=== PATIENT | male | born 1990 | race African-American/Black ===

== ENCOUNTER 2016-09-28 23:13 | Emergency (ER) | payer SELFPAY ==
--- NOTE | 2016-09-29 00:22 | ER Document Report ---
ED General - General Chief Complaint: Psych Problem Stated Complaint: AMS; PARANOID Time Seen by Provider: 09/28/16 23:44 Notes: Patient is a 26 year old male who called a wants because he thinks he may have been poisoned. According to his girlfriend the patient has been very agitated and very anxious and paranoid for last several days. She says there is a new person that is working with him. 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 Patient says is new person has been talking to him about poisoning. The new coworker has told the patient that people are been trying to kill him and have been trying to poison him. Patient himself now fears that maybe his coworkers from the poison him. Patient says he's felt very anxious. He says it does not feel right. Patient' s girlfriend says he's slept no more than 2 days and night for the last several nights. He's been very hyper and agitated and awake. He has no psychiatric history. He has no chronic medical problems. He takes no medications. He is otherwise healthy. TRAVEL OUTSIDE OF THE [place] IN LAST 30 DAYS: No - Related Data Allergies/Adverse Reactions: No Known Allergies Allergy (Verified 01/19/16 16:11) Home Medications: Current Home Medications No Home Medications 09/29/16 [History] Past Medical History - Social History Smoking Status: Never Smoker Frequency of alcohol use: None Drug Abuse: None Family History: Reviewed & Not Pertinent Patient has suicidal ideation: No Patient has homicidal ideation: No Renal/ Medical History: Denies: Hx Peritoneal Dialysis - Immunizations Immunizations up to date: Yes Hx Diphtheria, Pertussis, Tetanus Vaccination: Yes Review of Systems - Review of Systems Notes: My Normal Review Basic REVIEW OF SYSTEMS: CONSTITUTIONAL : Denies fever, chills, or sweats. Denies recent illness. EENT: Denies eye, ear, throat, or mouth pain or symptoms. Denies nasal or sinus congestion. CARDIOVASCULAR: Denies chest pain. RESPIRATORY: Denies cough, cold, or chest congestion. Denies shortness of breath, difficulty breathing, or wheezing. GASTROINTESTINAL: Denies abdominal pain. Denies nausea, vomiting, or diarrhea. Denies constipation. Last BM: MUSCULOSKELETAL: Denies neck or back pain or joint pain or swelling. SKIN: Denies rash or skin lesions. NEUROLOGICAL: Denies altered mental status or loss of consciousness. Denies headache. Denies weakness or paralysis or loss of use of either side. Denies problems with gait or speech. Denies sensory or motor loss. ALL OTHER SYSTEMS REVIEWED AND NEGATIVE. Physical Exam - Vital signs Vitals: Temp Pulse Resp BP Pulse Ox 97.8 F 70 16 145/94 H 100 09/28/16 23:26 09/28/16 23:26 09/28/16 23:26 09/28/16 23:26 09/28/16 23:26 - Notes Notes: General Appearance: Well nourished, alert, cooperative, no acute distress, no obvious discomfort. Anxious appearing. Vitals: reviewed, See vital signs table. Head: no swelling or tenderness to the head Eyes: PERRL, EOMI, Conjuctiva clear Mouth: No decreasd moisture Neck: Supple, no neck tenderness, No thyromegaly Lungs: No wheezing, No rales, No rhonci, No accessory muscle use, good air exchange bilaterally. Heart: Normal rate, Regular rythm, No murmur, no rub Abdomen: Normal BS, soft, No rigidity, No abdominal tenderness, No guarding, no rebound, no abdominal masses, no organomegaly Extremities: strength 5/5 in all extremities, good pulses in all extremities, no swelling or tenderness in the extremities, no edema. Skin: warm, dry, appropriate color, no rash Neuro: speech clear, oriented x 3, normal affect, responds appropriately to questions. Psychiatric: Very anxious. No flight of ideas. Patient is able to stay on topic during discussion. Course - Vital Signs Vital signs: Temp Pulse Resp BP Pulse Ox 97.8 F 70 16 145/94 H 100 09/28/16 23:26 09/28/16 23:26 09/28/16 23:26 09/28/16 23:26 09/28/16 23:26 - Laboratory Result Diagrams: 09/29/16 00:10 09/29/16 00:10 Laboratory results interpreted by me: 09/29/16 09/29/16 00:10 00:10 WBC 13.7 H Seg Neutrophils % 78.3 H Absolute Neutrophils 10.7 H Glucose 115 H Calcium 10.3 H Salicylates < 1.0 L Acetaminophen < 10 L - EKG Interpretation by Me Additional EKG results interpreted by me: 09/29/16 00:26 EKG is reviewed and interpreted by me. EKG shows centimeter car 3 55 bpm. Patient has diffuse concave up ST segment elevation consistent with early repolarization. No reciprocal ST segment depressions. MI interval, QRS duration , QTC intervals are within normal range. No old EKG available for comparison. - Transfer of Care Notes: 09/29/16 01:44 Limited to go reevaluate the patient she is asked to sleeping in the room. His girlfriend is at bedside. When I wake him up he is now very calm and is starting to feel improved. Urine drug screen is positive for amphetamines. Patient does admit to smoking marijuana which is also instructed. He does not think that the marijuana is laced with anything. He and his girlfriend are still concerned about his a coworker being that the coworker has made suggestions to him several occasions about possible poisonings. He still is concerned that maybe the coworker has placed something in his drink at work. I told him there is no way I can tell whether this is fact. At this time he did not suspect psychiatric illness because patient has no previous history of psychiatric illness. He does show some signs of vineet such as initially being very hyper and anxious and not sleeping much recently; however, he has no flight of ideas and is able to stay on topic very well when talking to me. This makes vineet less likely. Also amphetamines will cause exact symptoms that the patient came in with. I informed him that if he is concerned that this person is a threat to him that he should talk to the police about it. I informed him his that if he still is having any recurrence of the symptoms despite staying with this individual and he should return to ER immediately so to reevaluate him and again reassess him. Patient and his girlfriend agree with plan and he will be discharged home. Dictation of this chart was performed using voice recognition software; therefore, there may be some unintended grammatical errors. Discharge - Discharge Clinical Impression: Anxiety Amphetamine adverse reaction Qualifiers: Encounter type: initial encounter Qualified Code(s): T43.625A - Adverse effect of amphetamines, initial encounter Condition: Good Disposition: HOME, SELF-CARE Additional Instructions: Your drug screen contains amphetamines. Amphetamines can make you very hyper, agitated, and anxious. Please talk to the police about your concern with the individual that you fear may have drugged you. Please avoid that individual at all costs. Please return to the ER immediately if you have recurrence of your symptoms despite not being around the individual you are worried about. Please make sure the the marijuana you smoke is not laced with any other drugs. Forms: Return to Work
[2016-09-29 00:32] LABS: ABSOLUTE LYMPHOCYTES (AUTO) 2.1 10^3/uL (0.5-4.7); ABSOLUTE MONOCYTES (AUTO) 0.8 10^3/uL (0.1-1.4); ABSOLUTE NEUT (AUTO) 10.7 10^3/uL (1.7-8.2); BASOPHILS % (AUTO) 0.4 % (0-2); EOSINOPHILS % (AUTO) 0.2 % (0-6); LYMPHOCYTES % (AUTO) 15.3 % (13-45); MEAN CORPUSCULAR HEMOGLOBIN 29.3 pg (27.0-33.4); MEAN CORPUSCULAR HGB CONC 33.4 g/dL (32.0-36.0); MEAN CORPUSCULAR VOLUME 88 fl (80-97); MONOCYTES % (AUTO) 5.8 % (3-13); RED BLOOD COUNT 5.13 10^6/uL (4.35-5.55); RED CELL DISTRIBUTION WIDTH 13.1 % (11.5-14.0); SEGMENTED NEUTROPHILS % (AUTO) 78.3 % (42-78); WHITE BLOOD COUNT 13.7 10^3/uL (4.0-10.5)
[2016-09-29 00:49] LABS: ALANINE AMINOTRANSFERASE 34 U/L (21-72); ALBUMIN 4.7 g/dL (3.5-5.0); ALKALINE PHOSPHATASE 51 U/L (38-126); ANION GAP 14 (5-19); ASPARTATE AMINO TRANSFERASE 41 U/L (17-59); BILIRUBIN,DIRECT 0.2 mg/dL (0.0-0.4); BILIRUBIN,TOTAL 1.3 mg/dL (0.2-1.3); BLOOD UREA NITROGEN 14 mg/dL (7-20); CALCIUM 10.3 mg/dL (8.4-10.2); CARBON DIOXIDE 26 mmol/L (22-30); CHLORIDE 102 mmol/L (98-107); CREATININE RESULT 1.08 mg/dL (0.52-1.25); GLUCOSE 115 mg/dL (75-110); TOTAL PROTEIN 7.3 g/dL (6.3-8.2)
[2016-09-29 00:52] LABS: ALCOHOL < 10 mg/dL (NONE DETECTED)
[2016-09-29 00:56] LABS: AMORPHOUS SEDIMENT,URINE TRACE /HPF; APPEARANCE,URINE CLEAR; BILIRUBIN,URINE NEGATIVE (NEGATIVE); GLUCOSE, URINE NEGATIVE (NEGATIVE); KETONES,URINE NEGATIVE (NEGATIVE); LEUKOCYTE ESTERASE,URINE NEGATIVE (NEGATIVE); NITRITE,URINE NEGATIVE (NEGATIVE); PROTEIN,URINE NEGATIVE (NEGATIVE); URINE SPECIFIC GRAVITY 1.015; UROBILINOGEN,URINE NEGATIVE mg/dL (<2.0)
[2016-09-29 01:08] LABS: URINE BARBITURATES SCREEN NEGATIVE; URINE METHADONE SCREEN NEGATIVE; URINE OPIATES LOW NEGATIVE; URINE PHENCYCLIDINE SCREEN NEGATIVE
[2016-09-29 02:04] VITALS: BP 129/71
--- NOTE | 2016-09-29 17:05 | EKG REPORT ---
SEVERITY:- ABNORMAL ECG - SINUS RHYTHM PROBABLE LEFT VENTRICULAR HYPERTROPHY ST ELEV, PROBABLE NORMAL EARLY REPOL PATTERN : Confirmed by: Brigette Reno 29-Sep-2016 17:04:56
== END 2016-09-29 01:20 | disposition home or self-care (01) ==
LOC: ER 23:13
DX: F41.9 Anxiety disorder, unspecified (principal); T43.625A Adverse effect of amphetamines, initial encounter; R41.82 Altered mental status, unspecified
CPT/HCPCS: 36415; 80053; 80307; 81001; 85025; 93005; 93010; 99284

== ENCOUNTER 2017-05-20 07:28 | Emergency (ER) | payer SELFPAY ==
--- NOTE | 2017-05-20 08:27 | ER Document Report ---
ED Oral Problem - General Chief Complaint: Toothache Stated Complaint: TOOTHACHE Time Seen by Provider: 05/20/17 07:47 Mode of Arrival: Ambulatory Information source: Patient Notes: Patient is a Patient is a 27-year-old black male comes emergency room complaining of right upper back molar dental pain. Patient states this is a chronic problem has been doing well for the past year up until 2 weeks ago and another piece of the tooth broke off. Patient states that he has been experiencing increasing discomfort and pain over the past 24 hours. He is here in hopes of gaining some antibiotics and treatment for this problem. He states that the area has a large cavity as well inside the tooth itself that is broken down almost to the gumline. He states he has been running a low-grade fever off and on. He also states that he works outside in the cold weather is causing her to hurt much more. He has attempted Tylenol and ibuprofen without success. TRAVEL OUTSIDE OF THE [place] IN LAST 30 DAYS: No - HPI Patient complains to provider of: Swelling of face, Toothache Onset: Other - Chronic in nature but acute pain last 24 hours Onset: Gradual Quality of pain: Sharp, Stabbing, Throbbing Severity: Moderate Pain Level: 3 Context: Other Swollen jaw/face: Mild Associated symptoms: Decreased appetite, Toothache Worsened by: Cold Relieved by: Nothing Similar symptoms previously: Yes Recently seen / treated by doctor/dentist: No - Has sought treatment for it last year nothing currently - Related Data Allergies/Adverse Reactions: No Known Allergies Allergy (Verified 05/20/17 07:31) Past Medical History - General Information source: Patient - Social History Smoking Status: Current Every Day Smoker Cigarette use (# per day): Yes - Quarter pack per day Chew tobacco use (# tins/day): No Frequency of alcohol use: None Drug Abuse: None Family History: Reviewed & Not Pertinent Patient has suicidal ideation: No Patient has homicidal ideation: No Renal/ Medical History: Denies: Hx Peritoneal Dialysis - Immunizations Immunizations up to date: Yes Hx Diphtheria, Pertussis, Tetanus Vaccination: Yes Review of Systems - Review of Systems Constitutional: Fever EENT: Dental problem Cardiovascular: No symptoms reported Respiratory: No symptoms reported Gastrointestinal: No symptoms reported Genitourinary: No symptoms reported Male Genitourinary: No symptoms reported Musculoskeletal: No symptoms reported Skin: No symptoms reported Hematologic/Lymphatic: No symptoms reported Neurological/Psychological: No symptoms reported -: Yes All other systems reviewed and negative Physical Exam - Vital signs Vitals: Temp Pulse Resp BP Pulse Ox 99.2 F 72 14 126/69 H 100 05/20/17 07:36 05/20/17 07:36 05/20/17 07:36 05/20/17 07:36 05/20/17 07:36 Interpretation: Hypertensive - General General appearance: Alert, Other - Uncomfortable appearing In distress: None - HEENT Head: Normocephalic, Other - Examination patient's facial features shows that he has some mild noticeable swelling on the right upper cheek near the zygomatic process which would correlate well with the area of infection. There is no fluctuance felt it is only mild swelling Ears: Normal External canal: Normal Tympanic membrane: Normal, Bulging. No: Hemotympanum, Injected, Loss of landmarks, Perforation, Purulent effusion, Retracted, Serous effusion, Other Sinus: Normal Nasal: Normal Mouth/Lips: Normal Mucous membranes: Normal Pharynx: Normal. No: Blood in hypopharynx, Erythema, Exudate, Peritonsillar abscess, Post nasal drainage, Retropharyngeal abscess, Tonsillar hypertrophy, Uvular edema, Potential airway comprom., Other Neck: No: Normal, Anterior cervical chain, Posterior cervical chain, Brudzinski , Carotid bruit, Kernig's, Lymphadenopathy, Meningismus, Neck mass, Shotty nodes , Subcutaneous emphysema, Supple, Thyroid nodule, Thyromegally, Other - Respiratory Respiratory status: No respiratory distress Chest status: Nontender Breath sounds: Normal. No: Decreased air movement, Nonproductive cough, Productive cough, Rales, Rhonchi, Stridor, Wheezing, Other - Cardiovascular Rhythm: Regular Heart sounds: Normal auscultation Murmur: No - Abdominal Inspection: Normal - Neurological Neuro grossly intact: Yes Cognition: Normal Orientation: AAOx4 [place] Coma Scale Eye Opening: Spontaneous [place] Coma Scale Verbal: Oriented [place] Coma Scale Motor: Obeys Commands [place] Coma Scale Total: 15 Speech: Normal - Skin Skin Temperature: Warm Skin Moisture: Dry Skin Color: Normal, Rainbow Course - Vital Signs Vital signs: Temp Pulse Resp BP Pulse Ox 99.2 F 72 14 126/69 H 100 05/20/17 07:36 05/20/17 07:36 05/20/17 07:36 05/20/17 07:36 05/20/17 07:36 - Transfer of Care Notes: 05/20/17 08:28 Patient has requested that we help him with his discomfort and pain. I have offered him a dental block and explained to him the purpose and the length of relief he should get patient states he is going to decline that offer because he does not like needles or injections. I informed him that that would be the quickest way to resolve the pain however he is willing just to take some antibiotics and some day for pain. I have given him the good Rx prescription card I have explained to him and pointed out to him the cheapest place to get clindamycin 400 mg 40 pills would be [facility] for $26 and or the next cheapest would be [facility] at 30. I also have given him a card for that as well. Discharge - Discharge Clinical Impression: Dental abscess, Tooth pain Condition: Good Disposition: HOME, SELF-CARE Instructions: Clindamycin ([facility]), Oral Narcotic Medication ([facility]), Toothache ([facility] ), Dental Infection or Abscess ([facility]) Additional Instructions: I have informed you that we cannot fix a decayed broken tooth in the emergency room. You must find a dentist to help you out. We are giving you a handout with the dentist names and locations. Also you may contact the [facility] dental program at the following phone number which is [phone] this is a dental clinic set up by the hospitalist [facility] it is I believe based on income or it is free if you have no insurance I am not sure which one contact the number to find out. Should you have any increase in swelling pain or discomfort he spike a fever does not handle on Tylenol and ibuprofen return to ER for recheck. Prescriptions: Tramadol HCl [Ultram 50 mg Tablet] 50 mg PO Q6HP PRN #20 tablet PRN Reason: Clindamycin HCl 300 mg PO Q6 #40 capsule Ibuprofen 800 mg PO TID #30 tablet Forms: Smoking Cessation Education, Return to Work
[2017-05-20] MEDS ORDERED: ACETAMINOPHEN 325 MG TABLET PO ONE (08:59)
[2017-05-20 09:10] VITALS: BP 115/74
== END 2017-05-20 09:10 | disposition home or self-care (01) ==
LOC: ER 07:28
PROC: 3E0T3BZ Introduction of Anesthetic Agent into Peripheral Nerves and Plexi, Percutaneous Approach (ICD-10-PCS; principal; 2017-05-20)
DX: K04.7 Periapical abscess without sinus (principal); K08.89 Other specified disorders of teeth and supporting structures; R20.0 Anesthesia of skin; F17.210 Nicotine dependence, cigarettes, uncomplicated
CPT/HCPCS: 99282

== ENCOUNTER 2017-09-14 08:55 | Emergency (ER) | payer SELFPAY ==
[2017-09-14 09:08] VITALS: BP 127/75
[2017-09-14 10:47] LABS: APPEARANCE,URINE CLEAR; BILIRUBIN,URINE NEGATIVE (NEGATIVE); COLOR,URINE YELLOW; GLUCOSE, URINE NEGATIVE (NEGATIVE); KETONES,URINE NEGATIVE (NEGATIVE); LEUKOCYTE ESTERASE,URINE NEGATIVE (NEGATIVE); NITRITE,URINE NEGATIVE (NEGATIVE); PROTEIN,URINE NEGATIVE (NEGATIVE); URINE SPECIFIC GRAVITY 1.011; UROBILINOGEN,URINE NEGATIVE mg/dL (<2.0)
[2017-09-14 11:25] LABS: CHLAM PCR NOT DETECTED (NOT DETECT); GON PCR NOT DETECTED (NOT DETECT)
--- NOTE | 2017-09-14 11:33 | ER Document Report ---
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 No penile or scrotal pain. He had diarrhea yesterday with grumbling in his intestines. No hematuria. No fever or chills. He also feels fatigued. No saddle anesthesia or radiculopathy. Associated Symptoms: None Exacerbated by: Movement Relieved by: Denies Similar symptoms previously: Yes Recently seen / treated by doctor: No - ROS ROS below otherwise negative: Yes Systems Reviewed and Negative: Yes All other systems reviewed and negative - URINARY Urinary: REPORTS: Dysuria, Urgency, Frequency - MUSCULOSKELETAL Musculoskeletal: REPORTS: Back Pain Past Medical History - General Information source: Patient - Social History Smoking Status: Never Smoker Frequency of alcohol use: None Drug Abuse: None Lives with: Spouse/Significant other Family History: Reviewed & Not Pertinent Patient has suicidal ideation: No Patient has homicidal ideation: No - Medical History Notes: Chlamydia Renal/ Medical History: Denies: Hx Peritoneal Dialysis Surgical Hx: Negative - Immunizations Immunizations up to date: Yes Hx Diphtheria, Pertussis, Tetanus Vaccination: Yes Vertical Provider Document - CONSTITUTIONAL Agree With Documented VS: Yes Exam Limitations: No Limitations - INFECTION CONTROL TRAVEL OUTSIDE OF THE [place] IN LAST 30 DAYS: No - HEENT HEENT: Normal ENT Exam - NECK Neck: Supple - RESPIRATORY Respiratory: Breath Sounds Normal, No Respiratory Distress - CARDIOVASCULAR Cardiovascular: Regular Rate, Regular Rhythm - GI/ABDOMEN Gastrointestinal: Abdomen Soft, Abdomen Non-Tender, No Organomegaly, Normal Bowel Sounds - MUSCULOSKELETAL/EXTREMETIES Musculoskeletal/Extremeties: MAEW - NEURO Level of Consciousness: Awake, Alert Motor/Sensory: No Motor Deficit, No Sensory Deficit Deep Tendon Reflexes: 2+ - Bilateral ankle and patellar - DERM Integumentary: Warm, Dry, No Rash Course - Vital Signs Vital signs: Temp Pulse Resp BP Pulse Ox 97.8 F 76 20 127/75 H 100 09/14/17 09:05 09/14/17 09:05 09/14/17 09:05 09/14/17 09:05 09/14/17 09:05 Discharge - Discharge Clinical Impression: low back muscle strain Fatigue Qualifiers: Fatigue type: unspecified Qualified Code(s): R53.83 - Other fatigue Diarrhea Qualifiers: Diarrhea type: unspecified type Qualified Code(s): R19.7 - Diarrhea, unspecified Condition: Good Disposition: HOME, SELF-CARE Instructions: Acetaminophen, Diarrhea, Nonspecific ([facility]), Ibuprofen (General) ( [facility]), Low Back Pain ([facility]), Muscle Strain ([facility]), Warm Packs ([facility]) Additional Instructions: rest plenty of fluids to ER if symptoms worsen copy of negative labs given to you tylenol motrin Prescriptions: Ibuprofen [Motrin 600 mg Tablet] 600 mg PO Q8HP PRN #30 tablet PRN Reason: Referrals: RADHA FREDERICK MD [ACTIVE STAFF] - Follow up as needed
== END 2017-09-14 12:39 | disposition home or self-care (01) ==
LOC: ER 08:55
DX: S39.012A Strain of muscle, fascia and tendon of lower back, initial encounter (principal); X58.XXXA Exposure to other specified factors, initial encounter; R19.7 Diarrhea, unspecified; R53.83 Other fatigue
CPT/HCPCS: 81001; 87086; 87491; 87591; 99283

== ENCOUNTER 2017-09-24 11:43 | Emergency (ER) | payer SELFPAY ==
[2017-09-24 11:52] VITALS: BP 124/71
[2017-09-24] MEDS ORDERED: DEXAMETHASONE SOD PHOS INJ 10 MG/1 ML VIAL IM ONE (12:11)
[2017-09-24] MEDS ORDERED: KETOROLAC TROMETHAMINE INJ/PF 30 MG/1 ML SDV IM ONE (12:11)
--- NOTE | 2017-09-24 12:16 | ER Document Report ---
HPI - HPI Pain Level: 5 Notes: Patient is a 27-year-old male with no significant past medical history who presents to the ED complaining of acute on chronic back pain status post injury today while he was working. 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 Patient states that the pain does not radiate and remains into his lower back. He does not have any associated numbness or tingling. He has not had any injections or procedures to his lower back. He is eating and drinking without difficulties. He is urinating and having normal bowel movements since the injury. He has not had any medicines for symptoms. Denies any other recent illness. Denies any drug allergies. Patient does admit to smoking. Patient states that the pain is only there when he uses his trunk muscles and is not there when people (aka his significant other) are pushing on it. Denies any headache, fever, URI, sore throat, chest pain, palpitations, syncope, cough, shortness of breath, wheeze, dyspnea, abdominal pain, nausea/vomiting/diarrhea, urinary retention, dysuria, hematuria, loss of control of bowel or bladder, numbness/tingling, saddle anesthesia, muscle paralysis/weakness, or rash. - ROS Systems Reviewed and Negative: Yes All other systems reviewed and negative - CONSTITUTIONAL Constitutional: DENIES: Fever, Chills - EENT EENT: DENIES: Sore Throat, Ear Pain, Eye problems - NEURO Neurology: DENIES: Headache, Weakness, Vision blurred, Dizzinesss / Vertigo - CARDIOVASCULAR Cardiovascular: DENIES: Chest pain - RESPIRATORY Respiratory: DENIES: Trouble Breathing, Coughing - GASTROINTESTINAL Gastrointestinal: DENIES: Abdominal Pain, Black / Bloody Stools - URINARY Urinary: DENIES: Dysuria, Urgency, Frequency - REPRODUCTIVE Reproductive: DENIES: :, Postmenopausal, Abnormal bleeding / discharge - MUSCULOSKELETAL Musculoskeletal: DENIES: Extremity pain Past Medical History - Social History Smoking Status: Current Every Day Smoker Chew tobacco use (# tins/day): No Frequency of alcohol use: None Drug Abuse: None Family History: Reviewed & Not Pertinent Patient has suicidal ideation: No Patient has homicidal ideation: No Renal/ Medical History: Denies: Hx Peritoneal Dialysis - Immunizations Immunizations up to date: Yes Hx Diphtheria, Pertussis, Tetanus Vaccination: Yes Vertical Provider Document - CONSTITUTIONAL Agree With Documented VS: Yes Notes: PHYSICAL EXAMINATION: GENERAL: Well-appearing, well-nourished and in no acute distress. LUNGS: Breath sounds clear to auscultation bilaterally and equal. No wheezes rales or rhonchi. HEART: Regular rate and rhythm without murmurs, rubs, gallops. ABDOMEN: Soft, nontender, nondistended abdomen. No guarding, no rebound. No masses appreciated. Normal bowel sounds present. No CVA tenderness bilaterally. No pulsatile mass Rectal: tone intact. Musculoskeletal: LE's b/l: FROM to passive/active. Strength 5+/5. No deficits noted. No bony tenderness of extremities. Back: FROM to passive/active. Strength 5+/5. No vertebral point tenderness, stepoffs, or deformities. No other bony tenderness, erythema, swelling, or ecchymosis. SLR negative b/l. Non-tender to palpation. Mild spasming. No SI jt tenderness. No foot drop. Extremities: No cyanosis, clubbing, or edema b/l. Peripheral pulses 2+. Capillary refill less than 2 seconds. NEUROLOGICAL: Normal speech, ataxic gait. Normal sensory, motor exams. Reflexes 2+ b/l. Clonus negative. PSYCH: Normal mood, normal affect. SKIN: Warm, Dry, normal turgor, no rashes or lesions noted. - INFECTION CONTROL TRAVEL OUTSIDE OF THE [place] IN LAST 30 DAYS: No Course - Re-evaluation Re-evalutation: 09/24/17 12:13 Patient is an afebrile, well-hydrated, 27-year-old male who presents to the ED with low back pain, suspect sprain versus strain. Vitals are acceptable. PE is otherwise unremarkable for any focal neurological deficits. Patient is able to ambulate. No other red flag symptoms on H&P. Toradol and Decadron given IM today. Low suspicion for any meningitis, fracture, expanding/ruptured AAA, cauda equina syndrome, epidural mass lesion/abscess, herniated disc causing severe spinal stenosis, or other systemic infection at this time. Patient is aware that his condition can change from initial presentation and that he needs monitor symptoms closely for any acute changes. I will send him home with a prescription for naproxen and baclofen. Conservative measures otherwise for symptoms. Recheck with your PCM in 3-5 days. Consider consult orthopedic/ physical therapy. Return to the ED with any worsening/concerning symptoms otherwise as reviewed discharge. Patient is in agreement. - Vital Signs Vital signs: Temp Pulse Resp BP Pulse Ox 98.8 F 90 16 124/71 100 09/24/17 11:51 09/24/17 11:51 09/24/17 11:51 09/24/17 11:51 09/24/17 11:51 Discharge - Discharge Clinical Impression: Low back pain Qualifiers: Chronicity: acute Back pain laterality: bilateral Sciatica presence: without sciatica Qualified Code(s): M54.5 - Low back pain Condition: Stable Disposition: HOME, SELF-CARE Instructions: Low Back Pain ([facility]), Muscle Strain ([facility]), Stretching Exercises for the Back ([facility]) Additional Instructions: Rest, Ice, Compression, Elevation Tylenol/ibuprofen as needed Light stretches daily Strength exercises as able Moist heat and massage may help F/u with your PCP in 3-5 days for a recheck Consider consult(s) with Orthopedics/physical therapy for ongoing/worsening symptoms Return to the ED with any worsening symptoms and/or development of fever, headache, changes in behavior/mentation/vision/speech, chest pain, palpitations , syncope, shortness of breath, trouble breathing, abdominal pain, n/v/d, blood in stool/urine, loss of control of bowel/bladder, urinary retention, muscle weakness/paralysis, saddle anesthesia, numbness/tingling, or other worsening symptoms that are concerning to you. Prescriptions: Baclofen [Baclofen 10 mg Tablet] 5 - 10 mg PO BID PRN #10 tablet PRN Reason: Naproxen 500 mg PO BID PRN #30 tablet PRN Reason: Forms: Smoking Cessation Education, Return to Work Referrals: [facility] [Provider Group] - Follow up as needed
== END 2017-09-24 12:45 | disposition home or self-care (01) ==
LOC: ER 11:43
DX: M54.5 Low back pain (principal); R25.2 Cramp and spasm; F17.200 Nicotine dependence, unspecified, uncomplicated
CPT/HCPCS: 99283; 96372; J1885; J1100

== ENCOUNTER 2017-09-27 19:47 | Emergency (ER) | payer SELFPAY ==
--- NOTE | 2017-09-27 21:00 | ER Document Report ---
ED Medical Screen (RME) - General Chief Complaint: Itching, no appetite, body aches, dizzy Stated Complaint: BODY ACHE Time Seen by Provider: 09/27/17 20:56 Mode of Arrival: Ambulatory Information source: Patient Notes: Patient presents complaining of generalized pruritus for the past 3 weeks. Patient denies any skin rash. Patient reports dizziness, chills and decreased appetite for the same length of time. Patient states that he feels as though every time he eats he is poisoning himself and so to treat this he has been using a colon cleanse every day for the past 6 days. Patient does report occasional bloated gassy sensation to his abdomen. Patient denies any history of mental illness. Review of previous ER visit does demonstrate patient's had paranoia in the past. I have greeted and performed a rapid initial assessment of this patient. A comprehensive ED assessment and evaluation of the patient, analysis of test results and completion of the medical decision making process will be conducted by additional ED providers. TRAVEL OUTSIDE OF THE [place] IN LAST 30 DAYS: No - Related Data Allergies/Adverse Reactions: No Known Allergies Allergy (Verified 09/14/17 08:55) Past Medical History - Social History Frequency of alcohol use: None Drug Abuse: None Renal/ Medical History: Denies: Hx Peritoneal Dialysis - Immunizations Immunizations up to date: Yes Hx Diphtheria, Pertussis, Tetanus Vaccination: Yes Physical Exam - Vital signs Vitals: Temp Pulse Resp BP Pulse Ox 98.6 F 79 16 126/83 H 98 09/27/17 19:56 09/27/17 19:56 09/27/17 19:56 09/27/17 19:56 09/27/17 19:56 - Psychological Associated symptoms: Paranoid Course - Vital Signs Vital signs: Temp Pulse Resp BP Pulse Ox 98.6 F 79 16 126/83 H 98 09/27/17 19:56 09/27/17 19:56 09/27/17 19:56 09/27/17 19:56 09/27/17 19:56
[2017-09-27 21:20] LABS: ABSOLUTE LYMPHOCYTES (AUTO) 2.1 10^3/uL (0.5-4.7); ABSOLUTE MONOCYTES (AUTO) 0.9 10^3/uL (0.1-1.4); ABSOLUTE NEUT (AUTO) 3.4 10^3/uL (1.7-8.2); BASOPHILS % (AUTO) 0.6 % (0-2); EOSINOPHILS % (AUTO) 0.2 % (0-6); HEMATOCRIT 45.1 % (37.9-51.0); HEMOGLOBIN 15.5 g/dL (13.5-17.0); LYMPHOCYTES % (AUTO) 33.2 % (13-45); MEAN CORPUSCULAR HEMOGLOBIN 29.5 pg (27.0-33.4); MEAN CORPUSCULAR HGB CONC 34.3 g/dL (32.0-36.0); MEAN CORPUSCULAR VOLUME 86 fl (80-97); MONOCYTES % (AUTO) 13.5 % (3-13); PLATELET COUNT 166 10^3/uL (150-450); RED BLOOD COUNT 5.26 10^6/uL (4.35-5.55); RED CELL DISTRIBUTION WIDTH 13.5 % (11.5-14.0); SEGMENTED NEUTROPHILS % (AUTO) 52.5 % (42-78); TOTAL CELLS COUNTED % (AUTO) 100 %; WHITE BLOOD COUNT 6.4 10^3/uL (4.0-10.5)
[2017-09-27 21:25] LABS: APPEARANCE,URINE CLEAR; BILIRUBIN,URINE NEGATIVE (NEGATIVE); COLOR,URINE STRAW; GLUCOSE, URINE NEGATIVE (NEGATIVE); KETONES,URINE NEGATIVE (NEGATIVE); LEUKOCYTE ESTERASE,URINE NEGATIVE (NEGATIVE); NITRITE,URINE NEGATIVE (NEGATIVE); PROTEIN,URINE NEGATIVE (NEGATIVE); URINE SPECIFIC GRAVITY 1.003; UROBILINOGEN,URINE NEGATIVE mg/dL (<2.0)
[2017-09-27 21:42] LABS: URINE AMPHETAMINES SCREEN NEGATIVE; URINE BARBITURATES SCREEN NEGATIVE; URINE BENZODIAZEPINES SCREEN NEGATIVE; URINE COCAINE SCREEN NEGATIVE; URINE MARIJUANA (THC) SCREEN NEGATIVE; URINE METHADONE SCREEN NEGATIVE; URINE PHENCYCLIDINE SCREEN NEGATIVE
[2017-09-27 21:43] LABS: ALANINE AMINOTRANSFERASE 33 U/L (21-72); ALBUMIN 4.6 g/dL (3.5-5.0); ALKALINE PHOSPHATASE 54 U/L (38-126); ANION GAP 13 (5-19); ASPARTATE AMINO TRANSFERASE 31 U/L (17-59); BILIRUBIN,DIRECT 0.2 mg/dL (0.0-0.4); BILIRUBIN,TOTAL 0.9 mg/dL (0.2-1.3); BLOOD UREA NITROGEN 12 mg/dL (7-20); CALCIUM 10.3 mg/dL (8.4-10.2); CARBON DIOXIDE 29 mmol/L (22-30); CHLORIDE 101 mmol/L (98-107); GLUCOSE 92 mg/dL (75-110); POTASSIUM 4.2 mmol/L (3.6-5.0); SODIUM 143.3 mmol/L (137-145); TOTAL PROTEIN 7.4 g/dL (6.3-8.2)
[2017-09-27 21:44] LABS: ACETAMINOPHEN < 10 ug/mL (10-30); ALCOHOL < 10 mg/dL (NONE DETECTED); SALICYLATE < 1.0 mg/dL (2.0-20.0)
[2017-09-27] MEDS ORDERED: DICYCLOMINE HCL 20 MG TABLET PO ONE (23:07)
--- NOTE | 2017-09-27 23:18 | ER Document Report ---
ED General - General Chief Complaint: Itching, no appetite, body aches, dizzy Stated Complaint: BODY ACHE Time Seen by Provider: 09/27/17 20:56 Mode of Arrival: Ambulatory Information source: Patient Notes: 27-year-old male presents with multiple complaints.Pt notes that he had a low bakc injury, denies any new symptoms states it is getting better daily, that he has no cauda equina concerns . pt also notes that for the past 3 weks he has been having cramping abdominal pain diarrhea bloating sensation. Patient notes change in diet. Denies any fevers or chills denies any vomiting TRAVEL OUTSIDE OF THE [place] IN LAST 30 DAYS: No - HPI Onset: Other Onset/Duration: Waxing and waning Quality of pain: Cramping Severity: Mild Pain Level: 1 Associated symptoms: Diarrhea, Nausea Exacerbated by: Food Relieved by: Denies Similar symptoms previously: Yes Recently seen / treated by doctor: Yes - Related Data Allergies/Adverse Reactions: No Known Allergies Allergy (Verified 09/14/17 08:55) Past Medical History - General Information source: Patient - Social History Smoking Status: Current Every Day Smoker Cigarette use (# per day): Yes Chew tobacco use (# tins/day): No Smoking Education Provided: No Frequency of alcohol use: None Drug Abuse: None Family History: Reviewed & Not Pertinent Patient has suicidal ideation: No Patient has homicidal ideation: No Renal/ Medical History: Denies: Hx Peritoneal Dialysis - Immunizations Immunizations up to date: Yes Hx Diphtheria, Pertussis, Tetanus Vaccination: Yes Review of Systems - Review of Systems Notes: REVIEW OF SYSTEMS: CONSTITUTIONAL : Denies fever, chills, or sweats. Denies recent illness. EENT: Denies eye, ear, throat, or mouth pain or symptoms. Denies nasal or sinus congestion or discharge. Denies throat, tongue, or mouth swelling or difficulty swallowing. CARDIOVASCULAR: Denies chest pain. Denies palpitations or racing or irregular heart beat. Denies ankle edema. RESPIRATORY: Denies cough, cold, or chest congestion. Denies shortness of breath, difficulty breathing, or wheezing. GASTROINTESTINAL: Admits to abdominal pain cramping diarrhea GENITOURINARY: Denies difficulty urinating, painful urination, burning, frequency, blood in urine, or discharge. MUSCULOSKELETAL: Denies back or neck pain or stiffness. Denies joint pain or swelling. SKIN: Admits to generalized itching HEMATOLOGIC : Denies easy bruising or bleeding. LYMPHATIC: Denies swollen, enlarged glands. NEUROLOGICAL: Denies confusion or altered mental status. Denies passing out or loss of consciousness. Denies dizziness or lightheadedness. Denies headache. Denies weakness or paralysis or loss of use of either side. Denies problems with gait or speech. Denies sensory loss, numbness, or tingling. Denies seizures. PSYCHIATRIC: Denies anxiety or stress. Denies depression, suicidal ideation, or homicidal ideation. ALL OTHER SYSTEMS REVIEWED AND NEGATIVE. Dictation was performed using [employer] voice recognition software PHYSICAL EXAMINATION: GENERAL: Well-appearing, well-nourished and in no acute distress. HEAD: Atraumatic, normocephalic. EYES: Pupils equal round and reactive to light, extraocular movements intact, sclera anicteric, conjunctiva are normal. ENT: Nares patent, oropharynx clear without exudates. Moist mucous membranes. NECK: Normal range of motion, supple without lymphadenopathy LUNGS: Breath sounds clear to auscultation bilaterally and equal. No wheezes rales or rhonchi. HEART: Regular rate and rhythm without murmurs ABDOMEN: Soft, generalized tenderness Musculoskeletal: Normal range of motion, no pitting or edema. No cyanosis. NEUROLOGICAL: Cranial nerves grossly intact. Normal speech, normal gait. Normal sensory, motor exams PSYCH: Normal mood, normal affect. SKIN: Warm, Dry, normal turgor, no rashes or lesions noted. Physical Exam - Vital signs Vitals: Temp Pulse Resp BP Pulse Ox 98.6 F 79 16 126/83 H 98 09/27/17 19:56 09/27/17 19:56 09/27/17 19:56 09/27/17 19:56 09/27/17 19:56 Course - Re-evaluation Re-evalutation: 09/27/17 23:11 Patient's presentation is most consistent with bowel irritation. There is no sign of infection at this time, patient has no cauda equina concerns, I do believe Bentyl his cramping symptoms will improve, patient has been encouraged to take probiotics as he has been taking laxatives which obviously are causing the symptoms to worsen. Overall he looks well is in no distress resting comfortably able to ambulate full range of motion no other complaints His back pain is quite benign, he just wants to know when he can go back to work and I believe he is stable since he has no neurological deficits After performing a Medical Screening Examination, I estimate there is LOW risk for ACUTE APPENDICITIS, BOWEL OBSTRUCTION, ACUTE CHOLECYSTITIS, PERFORATED DIVERTICULITIS, INCARCERATED HERNIA, PANCREATITIS, TESTICULAR TORSION or PERFORATED ULCER, thus I consider the discharge disposition reasonable. Also, there is no evidence or peritonitis, sepsis, or toxicity. I have reevaluated this patient multiple times and no significant life threatening changes are noted. The patient and I have discussed the diagnosis and risks, and we agree with discharging home with close follow-up with the understanding that symptoms and presentations can change. We also discussed returning to the Emergency Department immediately if new or worsening symptoms occur. We have discussed the symptoms which are most concerning (e.g., bloody stool, fever, changing or worsening pain, intractable vomiting - standard verbal up date) that necessitate immediate return. - Vital Signs Vital signs: Temp Pulse Resp BP Pulse Ox 98.6 F 79 16 126/83 H 98 09/27/17 19:56 09/27/17 19:56 09/27/17 19:56 09/27/17 19:56 09/27/17 19:56 - Laboratory Result Diagrams: 09/27/17 21:00 09/27/17 21:00 Laboratory results interpreted by me: 09/27/17 09/27/17 21:00 21:00 Monocytes % 13.5 H Calcium 10.3 H Salicylates < 1.0 L Acetaminophen < 10 L Discharge - Discharge Clinical Impression: Abdominal cramping Low back pain Qualifiers: Chronicity: acute Back pain laterality: midline Sciatica presence: without sciatica Qualified Code(s): M54.5 - Low back pain Condition: Stable Disposition: HOME, SELF-CARE Instructions: Abdominal Pain ([facility]) Prescriptions: Dicyclomine HCl [Bentyl 20 mg Tablet] 20 mg PO QID #40 tablet Referrals: KUNAL NEVAREZ MD [ACTIVE STAFF] - Follow up tomorrow
[2017-09-27 23:33] VITALS: BP 128/88
--- NOTE | 2017-09-28 07:31 | EKG REPORT ---
SEVERITY:- NORMAL ECG - SINUS RHYTHM : Confirmed by: David Alves MD 28-Sep-2017 07:31:11
== END 2017-09-27 23:34 | disposition home or self-care (01) ==
LOC: ER 19:47
DX: M54.5 Low back pain (principal); R10.9 Unspecified abdominal pain; R10.817 Generalized abdominal tenderness; R19.7 Diarrhea, unspecified; R19.8 Other specified symptoms and signs involving the digestive system and abdomen; R11.0 Nausea; F17.210 Nicotine dependence, cigarettes, uncomplicated; L29.9 Pruritus, unspecified
CPT/HCPCS: 93005; 99284; 36415; 80307 ×4; 85025; 80053; 81001; 93010; J3490

== ENCOUNTER 2017-10-03 08:33 | Emergency (ER) | payer SELFPAY ==
[2017-10-03 08:46] VITALS: BP 127/67
--- NOTE | 2017-10-03 09:43 | RADIOLOGY REPORT (SQ) ---
EXAM DESCRIPTION: CHEST 2 VIEWS COMPLETED DATE/TIME: 10/03/2017 9:31 am REASON FOR STUDY: cough COMPARISON: None. EXAM PARAMETERS: NUMBER OF VIEWS: two views TECHNIQUE: Digital Frontal and Lateral radiographic views of the chest acquired. RADIATION DOSE: NA LIMITATIONS: none FINDINGS: LUNGS AND PLEURA: Patchy right upper lobe airspace disease. Lungs otherwise clear. MEDIASTINUM AND HILAR STRUCTURES: No masses or contour abnormalities. HEART AND VASCULAR STRUCTURES: Heart normal size. No evidence for failure. BONES: No acute findings. HARDWARE: None in the chest. OTHER: No other significant finding. IMPRESSION: PATCHY RIGHT UPPER LOBE AIRSPACE DISEASE SUSPICIOUS FOR DEVELOPING PNEUMONIA. TECHNICAL DOCUMENTATION: JOB ID: [id number] [employer]- All Rights Reserved Reading location - IP/workstation name: [email or web address]
--- NOTE | 2017-10-03 10:05 | ER Document Report ---
ED General - General Chief Complaint: Cough Stated Complaint: STOMACH PAIN Time Seen by Provider: 10/03/17 09:05 Mode of Arrival: Ambulatory Information source: Patient, [facility] Records Notes: 27-year-old male who had seen 1 week prior with abdominal cramping and diarrhea presents with complaints of having a cough now. Patient notes the symptoms just over the past few days notes that his abdominal pain diarrhea have improved significantly since he started taking the probiotics and I had encouraged as well as the Bentyl. He denies any fevers or chills admits to a productive yellowish cough TRAVEL OUTSIDE OF THE [place] IN LAST 30 DAYS: No - HPI Onset: Other - 3 days Onset/Duration: Persistent Quality of pain: Achy Severity: Mild Pain Level: 1 Associated symptoms: Productive cough, Shortness of breath Exacerbated by: Walking, Coughing Relieved by: Denies Similar symptoms previously: No Recently seen / treated by doctor: Yes - Related Data Allergies/Adverse Reactions: No Known Allergies Allergy (Verified 10/03/17 10:02) Past Medical History - Social History Smoking Status: Never Smoker Cigarette use (# per day): No Chew tobacco use (# tins/day): No Smoking Education Provided: No Frequency of alcohol use: None Drug Abuse: None Family History: Reviewed & Not Pertinent Patient has suicidal ideation: No Patient has homicidal ideation: No Renal/ Medical History: Denies: Hx Peritoneal Dialysis - Immunizations Immunizations up to date: Yes Hx Diphtheria, Pertussis, Tetanus Vaccination: Yes Review of Systems - Review of Systems Notes: REVIEW OF SYSTEMS: CONSTITUTIONAL : Denies fever, chills, or sweats. Denies recent illness. EENT: Denies eye, ear, throat, or mouth pain or symptoms. Denies nasal or sinus congestion or discharge. Denies throat, tongue, or mouth swelling or difficulty swallowing. CARDIOVASCULAR: Denies chest pain. Denies palpitations or racing or irregular heart beat. Denies ankle edema. RESPIRATORY: Admits to productive cough shortness of breath GASTROINTESTINAL: Denies abdominal pain or distention. Denies nausea, vomiting , or diarrhea. Denies blood in vomitus, stools, or per rectum. Denies black, tarry stools. Denies constipation. GENITOURINARY: Denies difficulty urinating, painful urination, burning, frequency, blood in urine, or discharge. MUSCULOSKELETAL: Denies back or neck pain or stiffness. Denies joint pain or swelling. SKIN: Denies rash, lesions or sores. HEMATOLOGIC : Denies easy bruising or bleeding. LYMPHATIC: Denies swollen, enlarged glands. NEUROLOGICAL: Denies confusion or altered mental status. Denies passing out or loss of consciousness. Denies dizziness or lightheadedness. Denies headache. Denies weakness or paralysis or loss of use of either side. Denies problems with gait or speech. Denies sensory loss, numbness, or tingling. Denies seizures. PSYCHIATRIC: Denies anxiety or stress. Denies depression, suicidal ideation, or homicidal ideation. ALL OTHER SYSTEMS REVIEWED AND NEGATIVE. Dictation was performed using [employer] voice recognition software PHYSICAL EXAMINATION: GENERAL: Well-appearing, well-nourished and in no acute distress. HEAD: Atraumatic, normocephalic. EYES: Pupils equal round and reactive to light, extraocular movements intact, sclera anicteric, conjunctiva are normal. ENT: Nares patent, oropharynx clear without exudates. Moist mucous membranes. NECK: Normal range of motion, supple without lymphadenopathy LUNGS: Mild rhonchi right upper base HEART: Regular rate and rhythm without murmurs ABDOMEN: Soft, nontender, nondistended abdomen. No guarding, no rebound. No masses appreciated. Musculoskeletal: Normal range of motion, no pitting or edema. No cyanosis. NEUROLOGICAL: Cranial nerves grossly intact. Normal speech, normal gait. Normal sensory, motor exams PSYCH: Normal mood, normal affect. SKIN: Warm, Dry, normal turgor, no rashes or lesions noted. Physical Exam - Vital signs Vitals: Temp Pulse Resp BP Pulse Ox 99 F 77 18 127/67 H 100 10/03/17 08:35 10/03/17 08:35 10/03/17 08:35 10/03/17 08:35 10/03/17 08:35 Course - Re-evaluation Re-evalutation: 10/03/17 14:46 Patient's x-rays consistent with an infiltrate that is developing, and that he is having a productive cough shortness breath associated with it I do believe antibiotics are appropriate. Patient otherwise is well-appearing no distress vital signs are stable he is breathing with no difficulty After performing a Medical Screening Examination, I estimate there is LOW risk for ACUTE CORONARY SYNDROME, PULMONARY EMBOLI, RESPIRATORY FAILURE, SEPSIS OR MENINGITIS, thus I consider the discharge disposition reasonable. I have reevaluated this patient multiple times and no significant life threatening changes are noted. The patient and I have discussed the diagnosis and risks, and we agree with discharging home with close follow-up. We also discussed returning to the Emergency Department immediately if new or worsening symptoms occur. We have discussed the symptoms which are most concerning (e.g., changing or worsening pain, trouble swallowing or breathing, neck stiffness, fever) that necessitate immediate return. - Vital Signs Vital signs: Temp Pulse Resp BP Pulse Ox 99 F 77 18 127/67 H 100 10/03/17 08:35 10/03/17 08:35 10/03/17 08:35 10/03/17 08:35 10/03/17 08:35 - Diagnostic Test Radiology reviewed: Image reviewed - Chest x-ray two-view consistent with right upper lobe infiltrate, Reports reviewed Discharge - Discharge Clinical Impression: Pneumonia Qualifiers: Pneumonia type: due to unspecified organism Laterality: right Lung location: upper lobe of lung Qualified Code(s): J18.1 - Lobar pneumonia, unspecified organism Condition: Stable Disposition: HOME, SELF-CARE Instructions: Pneumonia ([facility]) Additional Instructions: Follow up with your physician tomorrow for further care or return to the ED IMMEDIATELY if symptoms worsen or new concerns occur. If you cannot afford to follow up with your primary care physician a list of low cost clinics have been provided at the end of your discharge papers as well. Prescriptions: Doxycycline Hyclate 100 mg PO BID #14 capsule
== END 2017-10-03 10:13 | disposition home or self-care (01) ==
LOC: ER 08:33
DX: J18.1 Lobar pneumonia, unspecified organism (principal); R19.7 Diarrhea, unspecified; R10.9 Unspecified abdominal pain; R06.02 Shortness of breath
CPT/HCPCS: 71046; 99284

== ENCOUNTER 2017-10-10 11:41 | Emergency (ER) | payer SELFPAY ==
[2017-10-10 12:43] VITALS: BP 116/80
--- NOTE | 2017-10-10 12:47 | ER Document Report ---
ED Medical Screen (RME) - General Chief Complaint: Abdominal Pain Stated Complaint: ABDOMINAL PAIN Time Seen by Provider: 10/10/17 12:22 Mode of Arrival: Ambulatory Information source: Patient Notes: 27-year-old man presents to the emergency room with "Some type of bowel infection". Patient recently completed doxycycline for pneumonia. He does state he had a cough at that time and the cough is resolved. TRAVEL OUTSIDE OF THE [place] IN LAST 30 DAYS: No - HPI Onset: Other - Past month Onset/Duration: Gradual Quality of pain: No pain Severity: None Pain Level: Denies Associated Symptoms: denies: Chills, Dysuria, Shortness of breath Exacerbated by: Denies Relieved by: Denies Similar symptoms previously: Yes Recently seen / treated by doctor: Yes - Related Data Smoking: Non-smoker Frequency of alcohol use: None Drug Abuse: None Allergies/Adverse Reactions: No Known Allergies Allergy (Verified 10/10/17 12:11) Past Medical History - General Information source: Patient - Social History Cigarette use (# per day): No Chew tobacco use (# tins/day): No Frequency of alcohol use: None Drug Abuse: Marijuana Lives with: Spouse/Significant other Family history: None - Medical History Medical History: Negative Renal/ Medical History: Denies: Hx Peritoneal Dialysis Surgical Hx: Negative - Immunizations Immunizations up to date: Yes Hx Diphtheria, Pertussis, Tetanus Vaccination: Yes Review of Systems - Review of Systems Constitutional: denies: Chills, Fever EENT: No symptoms reported Cardiovascular: No symptoms reported Respiratory: No symptoms reported. denies: Cough, Short of breath Gastrointestinal: See HPI Genitourinary: No symptoms reported Male Genitourinary: No symptoms reported Musculoskeletal: No symptoms reported Skin: No symptoms reported Hematologic/Lymphatic: No symptoms reported Neurological/Psychological: No symptoms reported Physical Exam - Vital signs Vitals: Temp Pulse Resp BP Pulse Ox 98.4 F 76 16 139/71 H 99 10/10/17 11:48 10/10/17 11:48 10/10/17 11:48 10/10/17 11:48 10/10/17 11:48 Notes: Physical exam: GENERAL: 27-year-old man, alert and oriented 3, no acute distress HEAD: Atraumatic, normocephalic. EYES: Pupils equal round and reactive to light, extraocular movements intact, sclera anicteric, conjunctiva are normal. ENT: TMs normal, nares patent, oropharynx clear without exudates. Moist mucous membranes. NECK: Normal range of motion, supple without obvious mass or JVD. LUNGS: Breath sounds clear to auscultation bilaterally and equal. No wheezes rales or rhonchi. HEART: Regular rate and rhythm without murmurs, rubs or gallops. ABDOMEN: Soft, normoactive bowel sounds. No tenderness to palpation. No guarding, no rebound. No masses appreciated. EXTREMITIES: Normal range of motion, no pitting or edema. No clubbing or cyanosis. NEUROLOGICAL: Cranial nerves II through XII grossly intact. Normal speech, moving all extremities. PSYCH: Normal mood, normal affect. SKIN: Warm, Dry, normal turgor, no rashes or lesions noted. Course - Re-evaluation Re-evalutation: 10/10/17 14:35 Patient's lung exam looks quite good and is cough is resolved completely. He does not have any pulmonary symptoms at this time so he is responded well to the antibiotics. He seems to be perfect on abdominal complaints but is having no abdominal pain, diarrhea or constipation or blood in the stool. I have advised him to restart the probiotics now that he has finished the antibiotics and I will give him an outpatient follow-up referral. - Vital Signs Vital signs: Temp Pulse Resp BP Pulse Ox 97.2 F 77 16 116/80 100 10/10/17 12:40 10/10/17 12:40 10/10/17 12:40 10/10/17 12:40 10/10/17 12:40 Doctor's Discharge - Discharge Clinical Impression: Resolved pneumonia Condition: Stable Disposition: HOME, SELF-CARE Additional Instructions: As we discussed, having completed the antibiotics, I would now like you to take the probiotics for 2 weeks to improve the bowel health. I recommend making a diary of the foods that are not agreeing with you. I would like you to follow-up in the [facility] which is a free clinic. Return to the emergency room for any problems follow-up at the [facility] which is a free clinic. [address], [place] [address]
== END 2017-10-10 12:47 | disposition home or self-care (01) ==
LOC: ER 11:41
DX: R10.9 Unspecified abdominal pain (principal); R05 Cough
CPT/HCPCS: 99283

== ENCOUNTER 2017-11-20 00:20 | Emergency (ER) | payer SELFPAY ==
--- NOTE | 2017-11-20 01:22 | RADIOLOGY REPORT (SQ) ---
EXAM DESCRIPTION: XR CHEST 2 VIEWS COMPLETED DATE/TME: 11/20/2017 00:33 EXAM DESCRIPTION: 2 views of the chest CLINICAL HISTORY: cough COMPARISON: 10/03/2017 FINDINGS: Frontal and lateral views of the chest. The cardiomediastinal silhouette has normal size and contour. No consolidation, pneumothorax, or pleural effusion. No displaced rib fractures identified. Upper abdominal soft tissues are unremarkable. IMPRESSION: 1. No acute pulmonary process identified. Interval resolution of right upper lung opacity.
--- NOTE | 2017-11-20 01:50 | ER Document Report ---
ED Respiratory Problem - General Chief Complaint: Cough Stated Complaint: COUGH Time Seen by Provider: 11/20/17 01:24 Mode of Arrival: Ambulatory Information source: Patient TRAVEL OUTSIDE OF THE [place] IN LAST 30 DAYS: No - HPI Patient complains to provider of: Cough Notes: Patient is here with complaints of cough. Patient was diagnosed with pneumonia about a month ago was on antibiotics. States that he continues to still feel fatigued. Denies any chest pain. States that occasionally felt like he had some tightness in his chest but denies any currently. He was a former smoker but has not smoked for the last few months. He denies any recent fevers. No nausea, vomiting, diarrhea. He does not currently have a primary care doctor. He denies any other significant complaints at this time. - Related Data Allergies/Adverse Reactions: No Known Allergies Allergy (Verified 10/10/17 12:11) Past Medical History - Social History Smoking Status: Unknown if Ever Smoked Chew tobacco use (# tins/day): No Frequency of alcohol use: None Drug Abuse: None Family History: Reviewed & Not Pertinent Patient has suicidal ideation: No Patient has homicidal ideation: No Renal/ Medical History: Denies: Hx Peritoneal Dialysis - Immunizations Immunizations up to date: Yes Hx Diphtheria, Pertussis, Tetanus Vaccination: Yes Review of Systems - Review of Systems -: Yes All other systems reviewed and negative Physical Exam - Vital signs Vitals: Temp Pulse Resp BP Pulse Ox 99.2 F 64 18 120/70 100 11/20/17 00:27 11/20/17 00:27 11/20/17 00:27 11/20/17 00:27 11/20/17 00:27 - Notes Notes: GENERAL: alert, cooperative, nontoxic, no distress. HEAD: normocephalic, atraumatic EYES: conjunctiva pink without discharge, no external redness or swelling. EARS: no external swelling, no external redness NOSE: atraumatic, no external swelling MOUTH/THROAT: mucous membranes moist and pink, posterior pharynx without erythema, swelling, exudate. No trismus or drooling. NECK: soft, supple, full range of motion, no meningismus. CHEST: no distress, lungs clear and equal throughout. No wheezing, rales, rhonchi. CARDIAC: regular rate and rhythm, no murmur, normal capillary refill, normal pulses. No peripheral edema noted. ABDOMEN: Soft, nontender. BACK: full range of motion, no CVA tenderness. EXTREMITIES: full range of motion of all extremities. No redness, no swelling. NEURO: alert and oriented x 3, no focal deficits, full range of motion of all extremities. PYSCH: appropriate mood, affect. Patient is cooperative. SKIN: pink, warm, dry, no rash. Course - Re-evaluation Re-evalutation: 11/20/17 01:47 Patient is nontoxic-appearing with stable vitals. Here with complaints of continued cough and fatigue after being diagnosed with pneumonia about a month ago. On exam he looks well. Lungs are clear. Vitals are stable. He is not hypoxic or tachypneic. He is afebrile. Repeat chest x-ray today shows resolution of his right upper lobe pneumonia. He has no abdominal tenderness on exam. The remainder of his exam is unremarkable. This point the patient can be discharged home with instructions to continue fluids, Tylenol or Motrin if needed for pain. He will be given a referral to the [facility] to get established with primary care. Follow-up if not better in the next 1-2 weeks, sooner for any worsening symptoms, high fever, significant trouble breathing, persistent vomiting, or for any further concerns. The patient's emergency department workup and current diagnosis were explained to the patient and or family. Follow-up instructions were provided. Medications if prescribed were discussed. Instructions for when to return to the emergency department including specific worrisome symptoms were discussed with the patient and/or family. - Vital Signs Vital signs: Temp Pulse Resp BP Pulse Ox 99.2 F 64 18 120/70 100 11/20/17 00:27 11/20/17 00:27 11/20/17 00:27 11/20/17 00:27 11/20/17 00:27 - Diagnostic Test Radiology reviewed: Image reviewed, Reports reviewed - Resolution of right upper lobe pneumonia. No acute findings. Discharge - Discharge Clinical Impression: Cough Fatigue Qualifiers: Fatigue type: unspecified Qualified Code(s): R53.83 - Other fatigue Condition: Stable Disposition: HOME, SELF-CARE Instructions: Family Physicians / Practices, Weakness ([facility]) Additional Instructions: Get established with primary care at the next available appointment. Tylenol Motrin as needed for pain. Follow-up if not better in the next week. Follow- up sooner, significant trouble breathing, severe abdominal pain, persistent vomiting, or for any further concerns. Referrals: [facility] [Provider Group] - Follow up as needed
[2017-11-20 02:19] VITALS: BP 117/80
== END 2017-11-20 02:19 | disposition home or self-care (01) ==
LOC: ER 00:20
DX: R05 Cough (principal); R53.83 Other fatigue; Z87.01 Personal history of pneumonia (recurrent); Z87.891 Personal history of nicotine dependence
CPT/HCPCS: 71046; 99283